=== PATIENT | male | born 1970 | race African-American/Black ===

== ENCOUNTER 2022-06-12 20:24 | Emergency (ER) | payer MEDICAID ==
[~2022-06-12] VITALS: Ht 188 cm; Wt 95.0 kg
[2022-06-12] MEDS ORDERED: MORPHINE SULFATE 4 MG/ML CPJ (NOT FOR IM USE) IV ONE (21:15)
[2022-06-12 21:36] LABS: HEMOGLOBIN. 9.8 g/dL (14.0-18.0); MEAN CORPUSCULAR HEMOGLOBIN 29.3 pg (28.0-32.0); MEAN CORPUSCULAR VOLUME 86.6 fL (80.0-94.0); MEAN PLATELET VOLUME 7.6 fl (7.4-10.4); PLATELET 347 x1000/uL (130-400); RED BLOOD CELL COUNT 3.35 mill/uL (4.7-6.1); RED CELL DISTRIBUTION WIDTH 14.9 % (11.6-14.6)
[2022-06-12 21:43] LABS: CHLORIDE 100 mEq/L (98-107)
[2022-06-12 22:20] LABS: PLATELET ESTIMATE NORMAL
[2022-06-12 23:12] VITALS: BP 123/58
== END 2022-06-13 00:49 | disposition short-term general hospital (02) ==
LOC: ER 20:24
DX: G89.18 Other acute postprocedural pain (principal); R07.89 Other chest pain; I95.9 Hypotension, unspecified; R53.1 Weakness; D72.829 Elevated white blood cell count, unspecified; N28.9 Disorder of kidney and ureter, unspecified; D64.9 Anemia, unspecified
CPT/HCPCS: 36415; 71045; 80053; 83605; 83880; 84484; 85025; 87040; 93005; 93970; 96374; 99285; J2270

== ENCOUNTER 2024-06-24 12:37 | Emergency (ER) | payer MEDICAID ==
[~2024-06-24] VITALS: Ht 167.6 cm; Wt 80.0 kg
[2024-06-24 12:47] VITALS: O2SAT 100
[2024-06-24 13:34] LABS: HEMATOCRIT. 52.4 % (42.0-52.0); HEMOGLOBIN. 16.6 g/dL (14.0-18.0); MEAN CORPUSCULAR HEMOGLOBIN 30.7 pg (28.0-32.0); MEAN CORPUSCULAR HGB CONC 31.7 g/dL (31.0-37.0); MEAN PLATELET VOLUME 8.4 fl (7.4-10.4); PLATELET 122 x1000/uL (130-400); RED CELL DISTRIBUTION WIDTH 15.4 % (11.6-14.6); WHITE BLOOD COUNT 9.3 x1000/uL (4.5-11.0)
[2024-06-24 13:38] LABS: DIFFERENTIAL COMMENT 1
[2024-06-24 13:54] LABS: CHLORIDE 105 mEq/L (98-107); POTASSIUM 5.8 mEq/L (3.5-5.1); SODIUM 136 mEq/L (136-145)
[2024-06-24 13:55] LABS: CALCIUM 9.8 mg/dL (8.7-10.4); CARBON DIOXIDE 17 mEq/L (21-32)
[2024-06-24 13:56] LABS: TROPONIN I HIGH SENSITIVITY 18 ng/L (3.0-53)
[2024-06-24 14:00] LABS: CREATININE 1.8 mg/dL (0.6-1.3); GLUCOSE 167 mg/dL (70-105); UREA NITROGEN BLOOD 18 mg/dL (9-23)
[2024-06-24 14:54] LABS: PLATELET ESTIMATE DECREASED
[2024-06-24] MEDS: IOHEXOL-350 100 ML BOTTLE ONE (15:11)
[2024-06-24] MEDS: CALCIUM CHLORIDE 1,000 MG in DEXT 5% WATER 100 ML IV ONE (16:45)
[2024-06-24] MEDS: SODIUM CHLORIDE 0.9% 1,000 ML IV ONE (16:48)
[2024-06-24 17:34] VITALS: TEMP 36.72516
[2024-06-24] MEDS: LABETALOL 5MG/ML 4ML INJ IV ONE ×2 (17:39→17:56)
[2024-06-24] MEDS: INSULIN REGULAR (HUMULIN R) 1000UNITS/10ML VIAL IV ONE (17:40)
[2024-06-24] MEDS: DEXTROSE 50% WATER 50ML SYRINGE IV ONE (17:43)
[2024-06-24] MEDS ORDERED: ESMOLOL 2500MG PREMIX 250 ML IV ONE (18:00)
[2024-06-24] MEDS: ESMOLOL 2500MG PREMIX 250 ML IV PRN (18:23)
[2024-06-24 18:46] VITALS: BP 164/84; PULSE 79; RESP 18; O2SAT 99
[2024-06-24 18:56] VITALS: TEMP 98.6
[2024-06-24] MEDS: ACETAMINOPHEN 325MG TABLET PO NR (18:56)
== END 2024-06-24 19:16 | disposition short-term general hospital (02) ==
LOC: ER 12:37 → CANBEDREQ 16:50 → ER 19:16
DX: I71.012 Dissection of descending thoracic aorta (principal); E87.5 Hyperkalemia; Z98.890 Other specified postprocedural states
CPT/HCPCS: 99285; 71275; 96365; 96375; 71045; 96367; 80048; 83880; 85025; 84484; 36415; 70450; 70486; 93005; Q9967; J3490 ×2; J7060; J7030; J1815